=== PATIENT | male | born 1980 ===

== ENCOUNTER 2019-04-22 09:29 | Emergency (ER) | payer BC ==
[~2019-04-22] VITALS: Ht 185.4 cm; Wt 95.2 kg
[~2019-04-22 09:29] MED LIST: VALARIAN ROOT
[2019-04-22] MEDS ORDERED: FAMC250 (10:06)
== END 2019-04-22 11:28 | disposition home or self-care (01) ==
LOC: ER 09:29
DX: M79.662 Pain in left lower leg (principal); M79.661 Pain in right lower leg; Z88.5 Allergy status to narcotic agent; Z79.899 Other long term (current) drug therapy
CPT/HCPCS: 93970; 99283-25